=== PATIENT | male | born 1970 | race Caucasian/White ===

== ENCOUNTER 2022-01-12 13:11 | Emergency (ER) | payer MEDICAID ==
[2022-01-12 13:16] VITALS: BP 154/87
[2022-01-12] MEDS ORDERED: LIDOCAINE 1% 2 ML VIAL MC ONE (13:33)
[2022-01-12] MEDS ORDERED: cefTRIAXone 1 GM VIAL IM STA (13:33)
[2022-01-12] MEDS ORDERED: SULFAMETH/TRIMETH DS 800/160 MG TABLET PO STA (13:42)
--- NOTE | 2022-01-12 13:46 | ED Physician Documentation ---
History of Present Illness - Stated complaint Stated Complaint: LIP SWELLING, LAC - Chief complaint Chief Complaint: Heent - Additonal information Additional information: 51-year-old male who is marginally home and presents to the emergency department for evaluation of lower lip cellulitis. He reports a pimple on it 3 days ago that he attempted to pop. Since then he has had progressive swelling erythema and now purulent drainage from the site of the pimple now ulcerated. He had subjective fevers this morning. No trismus. No dysphonia. He does smoke tobacco daily Review of Systems Constitutional: reports: Fever, Fatigue Eyes: reports: Reviewed and negative Throat: reports: Oral lesions / sores Cardiac: reports: Reviewed and negative Respiratory: reports: Reviewed and negative GI: reports: Reviewed and negative : reports: Reviewed and negative PD PAST MEDICAL HISTORY - Present Medications Home Medications: Ambulatory Orders Medication Instructions Recorded Confirmed HYDROcod/ACETAM 5/325 [[place] 5/325] 1 tablet PO BID PRN #5 tablet 01/12/22 Sulfamethox/Trimeth 800/160 1 each PO BID #14 tablet 01/12/22 [Bactrim Ds 800/160] cephALEXin [Keflex] 500 mg PO Q6H #28 cap 01/12/22 - Allergies Allergies/Adverse Reactions: Allergies Allergy/AdvReac Type Severity Reaction Status Date / Time No Known Drug Allergies Allergy Verified 01/12/22 13:16 PD ED PE EXPANDED - General General: Alert, No acute distress, Disheveled, poorly kept (Poor hygiene disheveled) - HEENT HEENT: Atraumatic, PERRL, Pharynx normal, Other (Significant swelling of the lower lip with edema and induration. There is a 1 cm ulceration in the right lip with purulent drainage. About 5 mL of purulent fluid was drained. No trismus normal phonation) - Neck Neck: Supple w/out meningeal sx. No: Adenopathy - Cardiac Cardiac: Regular Rate, Radial strong equal - Respiratory Respiratory: Clear to ausultation santo. No: Distress, Labored Results - Vitals Vitals: Vital Signs - 24 hr 01/12/22 13:14 Temperature 36.8 C Heart Rate 89 Respiratory 14 Rate Blood Pressure 154/87 H O2 Saturation 98 Oxygen O2 Source Room air PD MEDICAL DECISION MAKING - ED course Complexity details: considered differential, d/w patient ED course: 51-year-old male presents emergency department for evaluation of lower lip ulceration and now cellulitis. He reports it started as a pimple 3 days ago which he attempted to pop. An ulcer has formed which was expressed to reveal a hole within the lip. This was thoroughly irrigated with 500 mils of saline. A wound culture was obtained. Patient was given ceftriaxone as well as Bactrim here in the emergency department. He will be discharged with a prescription for Keflex and Bactrim as an outpatient. If not markedly improved over the next 48 to 72 hours will return to the ER. He has no trismus or fever here. I am prescribing a short course of short-acting opioid pain medication for this patient. I have reviewed the patients [employer] and no concerning findings were noted. I have discussed that the opioids are for short term therapy only, and will not be refilled from the ED. Departure - Departure Disposition: 01 Home, Self Care Clinical Impression: Lip ulceration, Cellulitis of skin of lip Instructions: Cellulitis Dc Prescriptions: Sulfamethox/Trimeth 800/160 [Bactrim Ds 800/160] 1 each PO BID #14 tablet cephALEXin [Keflex] 500 mg PO Q6H #28 cap HYDROcod/ACETAM 5/325 [[place] 5/325] 1 tablet PO BID PRN #5 tablet PRN Reason: Pain Comments: [place] you do have a significant infection in your lower lip. The pimple appears to have formed a deep ulcer. At the bedside we did allow this ulcer to open up as well as thoroughly irrigate the lip. In general I want you rinse your mouth with warm salt water 3 times a day. Apply any antibiotic ointment such as bacitracin, Neosporin to the lip sore. You do need to begin taking antibiotics. Your first doses were given here in the ER and they have been sent to the [facility] in [place]. I have also sent a limited prescription for [place] and pain medication to the pharmacy. If despite the antibiotics you are having worsening swelling, any fevers redness or worsening symptoms then you should return immediately to the ER. Please fill these prescriptions tonight and begin taking as directed. I am prescribing a short course of narcotic pain medication for you. These are potentially dangerous and addictive medications that should be used carefully. These medications may constipate you. Take an hnis-nmv-lenuwmn stool softener (docusate) twice daily with plenty of water while taking these medications. If you go 24 hours without a bowel movement, take [id number] miralax, per package instructions. Do not drink or drive while taking these medications. If you received narcotic or sedating medications while in the emergency department, do not drive for 24 hours. Store this medication in a safe, secure place and out of reach of children. It is a violation of federal law to give or sell this medication to another person or to use in a manner other than prescribed. The ED will not refill narcotic prescriptions, including prescriptions lost or stolen. To dispose of unwanted medications: 1. [facility] at [address] [facility] [address] in [place] has a medication drop box. They accept prescription medications (in pill form) Monday through Monday 9:00 a.m. to 5:00 p.m. 2. [facility] accepts prescription medications (in pill form only) for disposal year round. Call for more information. 3. Contact the [facility] for the next [facility] sponsored prescription d rug collection event. , [phone], or [phone]; Note that many narcotic pain relievers also contain Tylenol/acetaminophen. Please ensure that your total dose of acetaminophen from all sources does not exceed 3 g (3000 mg) per day.
[2022-01-12] MEDS ORDERED: BACITRACIN ZINC OINT 1 PACKET TOP STA (13:53)
[2022-01-12] MEDS ORDERED: LIDOCAINE-MPF 1% 5 ML VIAL MC ONE (14:00)
== END 2022-01-12 14:21 | disposition home or self-care (01) ==
LOC: ED 13:11
DX: K13.0 Diseases of lips (principal); L98.499 Non-pressure chronic ulcer of skin of other sites with unspecified severity; Z72.0 Tobacco use
CPT/HCPCS: 87070; 87181; 87205; 96372; 99282; 99283; A9270